=== PATIENT | female | born 1980 | race Caucasian/White ===

== ENCOUNTER 2017-12-21 16:16 | Emergency (ER) | payer MEDICAID ==
[~2017-12-21] VITALS: Ht 165.1 cm; Wt 117.9 kg
[2017-12-21] MEDS ORDERED: SUMAtriptan SUCCINATE 6 MG/0.5 ML VL SC ONE (18:30)
[2017-12-21 18:39] VITALS: BP 141/78
[2017-12-21] MEDS ORDERED: HYDROcodone-ACET 10/325MG TAB PO ONE (19:30)
[2017-12-21] MEDS ORDERED: ONDANSETRON HCL 4 MG/2 ML VIAL IM ONE (19:30)
[2017-12-21] MEDS ORDERED: KETOROLAC TROMETH 60MG/2ML VIAL IM ONE (19:30)
== END 2017-12-21 20:22 | disposition home or self-care (01) ==
LOC: ER 16:16 → EDBD 16:16 → ER 20:22
DX: G43.909 Migraine, unspecified, not intractable, without status migrainosus (principal); R11.2 Nausea with vomiting, unspecified
CPT/HCPCS: 96372; 99284; J1885; J2405; J3030; J7030